=== PATIENT | female | born 1970 | race Caucasian/White ===

== ENCOUNTER 2017-04-08 06:35 | Emergency (ER) | END 2017-04-08 09:48 | disposition home or self-care (01) ==

== ENCOUNTER 2018-07-04 11:41 | Emergency (ER) | payer OTHER ==
[~2018-07-04] VITALS: Ht 175.3 cm; Wt 119.1 kg
[~2018-07-04 11:41] MED LIST: ALBU18HF INHALATION; AMOX500C2 PO; AZIT250T PO; HYDR-3498 PO; IBUP-1542 PO; IBUP800T48 PO; NITR-58 PO; PHEN-537 PO; PRED20TA PO
[2018-07-04 11:45] VITALS: BP 119/66; PULSE 64; RESP 20; Ht 175.3 cm; Wt 119.1 kg
[2018-07-04] MEDS ORDERED: PROM6.2515 PO (13:23)
[2018-07-04] MEDS ORDERED: ALBU8.5H8 INH (13:54)
--- NOTE | 2018-07-04 15:22 | ERD ---
ER Documentation Chief Complaint Chief Complaint Complains of a sore throat x 3 days HPI 48-year-old female presenting with sore throat times 3 days. Patient also has a cough. No fevers. Mild runny nose. Took cough medicine this morning but no other medications. Denies medical problems. NKDA. Surgical history . Social history smokes 3 cigarettes a day. ROS All systems reviewed and are negative except as per history of present illness. Medications Home Meds Active Scripts Albuterol Sulfate* (Proair HFA*) 8.5 Gm Hfa.aer.ad, 2 PUFF INH Q4, #1 INHALER Prov:EMELIA BAKERC 07/04/18 Promethazine Hcl* (Promethazine Hcl* Syrup) 6.25 Mg/5 Ml Syrup, 6.25 MG PO Q6H PRN for COUGH, #100 ML Prov:EMELIA BAKER PA-C 07/04/18 Ibuprofen* (Motrin*) 600 Mg Tab, 600 MG PO Q6, #20 TAB Prov:SAMMY COOK PA-C 04/08/17 Amoxicillin* (Amoxicillin*) 500 Mg Cap, 500 MG PO TID for 7 Days, #21 CAP Prov:SAMMY COOK PA-C 04/08/17 Ibuprofen* (Motrin*) 600 Mg Tab, 600 MG PO Q6, #15 TAB Prov:CELESTE YUEN MD 01/03/16 Albuterol Sulfate* (Ventolin HFA*) 18 Gm Hfa.aer.ad, 2 PUFF INHALATION Q4H, #1 INHALER Prov:CELESTE YUEN MD 01/03/16 Prednisone* (Prednisone*) 20 Mg Tab, 40 MG PO DAILY for 4 Days, TAB Prov:CELESTE YUEN MD 01/03/16 Azithromycin* (Zithromax*) 250 Mg Tablet, 250 MG PO .SURYCK DIRECTED, #6 TAB TAKE 500 MG (2 TABS) THE FIRST DAY THEN 250 MG (1 TAB) DAYS 2-5 Prov:CELESTE YUEN MD 01/03/16 Phenazopyridine Hcl* (Pyridium*) 100 Mg Tab, 100 MG PO TID PRN for URINARY PAIN, #8 TAB Prov:XIOMARA MOORE PA-C 11/24/15 Nitrofurantoin Monohyd Macrocr* (Macrobid*) 100 Mg Capsr, 100 MG PO BID for 7 Days, CAP Prov:XIOMARA MOORE PA-C 11/24/15 Ibuprofen* (Motrin*) 800 Mg Tab, 800 MG PO Q8 for PAIN AND OR ELEVATED TEMP, #30 TAB Prov:LEONA QUIROZ X. KENNEL ATTENDANT 05/07/15 Hydrocodone Bit-Acetaminophen* ([place]*) 5-325 Mg Tab, 1 TAB PO Q6 PRN for PAIN, #7 TAB Prov:GABRIELLALEONA X. KENNEL ATTENDANT 01/11/15 Allergies Allergies: Coded Allergies: No Known Allergy (Verified , 04/08/17) PMhx/Soc History of Surgery: No (c section x 2 1992,1999) Anesthesia Reaction: No Hx Neurological Disorder: No Hx Respiratory Disorders: Yes (ASTHMA) Hx Cardiac Disorders: No Hx Psychiatric Problems: No Hx Miscellaneous Medical Probl: No Hx Alcohol Use: No Hx Substance Use: No Hx Tobacco Use: Yes Smoking Status: Never smoker Physical Exam Vitals Vital Signs Date Temp Pulse Resp B/P (MAP) Pulse Ox O2 O2 Flow FiO2 Time Delivery Rate 07/04/18 98.6 64 20 119/66 99 11:45 (83) Physical Exam GENERAL: The patient is well-appearing, well-nourished, in no acute distress HEENT: Atraumatic. Conjunctivae are pink. Pupils equal, round, and reactive to light. There is no scleral icterus. Tympanic membranes clear bilaterally. Jace pharynx clear. NECK: C-spine is soft and supple. There is no meningismus. There is no cervical lymphadenopathy. CHEST: Clear to auscultation bilaterally. There are no rales, wheezes or rhonchi. HEART: Regular rate and rhythm. No murmurs, clicks, rubs or gallops. Procedures/MDM DIAGNOSTIC IMAGING REPORT Patient: SHIRA MATA : 1970 Age: 48 Sex: F MR #: [id number] DOS: 07/04/18 1305 Ordering MD: WANDA BAKER PA-C Location: [facility] Room/Bed: PROCEDURE: XR Chest. CLINICAL INDICATION: cough TECHNIQUE: Single frontal view of the chest was obtained COMPARISON: 01/29/17 FINDINGS: The heart and mediastinum are within normal limits. The lungs are clear. There is no pleural effusion or pneumothorax. RPTAT: AA IMPRESSION: No acute disease. MDM: 48-year-old female presenting with cough. I have low suspicion for pneumonia. I have low suspicion for respiratory distress or hypoxia. I have low suspicion for bacterial HEENT infection. Patient is discharged with strict ER precautions and told to follow-up with primary care within 1-2 days for close evaluation. Patient is told if symptoms change or worsen to return immediately to the ER. All questions answered at discharge Departure Diagnosis: Primary Impression: Cough Condition: Stable Patient Instructions: Cough, Chronic, Uncertain Cause, (Adult) Additional Instructions: FOLLOW UP WITH YOUR PRIMARY CARE PHYSICIAN TOMORROW.Return to this facility if you are not improving as expected. EMELIA BAKER PA-C Jul 04, 2018 15:22
== END 2018-07-04 14:57 | disposition home or self-care (01) ==
LOC: FTE 11:41
DX: R05 Cough (principal); J45.909 Unspecified asthma, uncomplicated
CPT/HCPCS: 71045; Z7502; 99283